=== PATIENT | female | born 2000 | race American Indian/Alaskan Native ===

== ENCOUNTER 2021-10-28 19:20 | Emergency (ER) | payer BC, OTHER ==
[~2021-10-28 19:20] MED LIST: CLIN150C2 PO; NO HOME MEDS; OSEL6SUS4 PO
== END 2021-10-28 20:00 | disposition left against medical advice (07) ==
LOC: ER 19:21
DX: K92.1 Melena (principal); Z53.21 Procedure and treatment not carried out due to patient leaving prior to being seen by health care provider